=== PATIENT | female | born 1980 | race Caucasian/White ===

== ENCOUNTER 2018-12-13 09:48 | Outpatient (CLI) | payer OTHER ==
--- NOTE | 2018-12-13 10:33 | RAD ---
CERVICAL SPINE THREE VIEWS: INDICATIONS: Upper back pain. Neck pain. COMPARISON: None. FINDINGS: Spinal alignment is within normal limits. Vertebral body heights are normal appearing. The lateral masses are symmetric. The lung apices are clear. IMPRESSION: Cervical spine appears radiographically normal. POS: [facility]
--- NOTE | 2018-12-13 10:34 | RAD ---
THORACIC SPINE THREE VIEWS: INDICATIONS: Upper back pain. COMPARISON: None. FINDINGS: Spine alignment is within normal limits. There is mild disk degenerative disease of the thoracic spi ne. The lungs are clear. 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 POS: [facility]
== END 2018-12-13 09:49 | disposition home or self-care (01) ==
LOC: TBSIIMAG 09:48
PROVIDERS: ATTEND Family Medicine
DX: M54.6 Pain in thoracic spine (principal); M54.2 Cervicalgia; M51.34 Other intervertebral disc degeneration, thoracic region
CPT/HCPCS: 72040; 72070

== ENCOUNTER 2024-06-30 11:03 | Outpatient (CLI) | payer OTHER | END 2024-06-30 11:04 | disposition home or self-care (01) | LOC: BICMRI 11:03 | PROVIDERS: ATTEND Family Medicine | DX: R51.9 Headache, unspecified (principal) | CPT/HCPCS: 70551 ==

== ENCOUNTER 2025-02-16 14:53 | Outpatient (CLI) | payer OTHER | END 2025-02-16 14:54 | disposition home or self-care (01) | LOC: BICMRI 14:53 | PROVIDERS: ATTEND Family Medicine | DX: M50.122 Cervical disc disorder at C5-C6 level with radiculopathy (principal); M47.22 Other spondylosis with radiculopathy, cervical region; M48.02 Spinal stenosis, cervical region; M50.11 Cervical disc disorder with radiculopathy, high cervical region; M50.123 Cervical disc disorder at C6-C7 level with radiculopathy; M50.13 Cervical disc disorder with radiculopathy, cervicothoracic region | CPT/HCPCS: 72141 ==